=== PATIENT | female | born 1975 | race American Indian/Alaskan Native ===

== ENCOUNTER 2018-12-25 19:05 | Inpatient (IN) | payer SELFPAY ==
--- NOTE | 2018-12-25 19:37 | Event Note ---
Date: 12/25/18 Patient complains of central chest pain that radiates to both ribs, without vomiting, or shortness of breath, endorses resolved diaphoresis, after eating fast food. Reports stent placement at [facility] a few days ago, believes that her tool repairer is Dr. Ochoa. Initial EKG abnormal, with nonspecific anteroseptal ST abnormality, V1, V2, V3, without prior for comparison, or ST depression or reciprocal changes. The patient appears quite comfortable and is speaking in full sentences at this time. EKG transmitted to our package dyer on-call, Dr. Carrion, who agrees that the EKG currently does not meet emergent stucco laborer criteria activation. The patient will be protocoled according to our chest pain pathway.
--- NOTE | 2018-12-25 19:39 | Emergency Department Report ---
Chief Complaint: Chest Pain Stated Complaint: CHEST PAIN Time Seen by Provider: 12/25/18 19:34 - HPI History of Present Illness: This is a 43 y.o. female that presents with chest pain that is non-radiating for a few days. PMH HTN and DC. Patient states she ran out of blood pressure medication a few days ago. - Exam Vital Signs: Vital Signs 12/25/18 19:07 Temperature 97.8 F Pulse Rate 84 Respiratory 18 Rate Blood Pressure 188/124 Blood Pressure 188/124 [Left] O2 Sat by Pulse 98 Oximetry MSE screening note: Focused history and physical exam performed. Due to findings the following was ordered: Labs, EKG, & CXR Main ED for further evaluation. ED Disposition for MSE Condition: Stable
[2018-12-25 20:32] LABS: Basophils # (Auto) 0.1 K/mm3 (0.0-0.1); Eosinophils % (Auto) 0.2 % (0.0-4.3); Hematocrit 37.5 % (30.3-42.9); Hemoglobin 12.9 gm/dl (10.1-14.3); Lymphocytes # (Auto) 2.3 K/mm3 (1.2-5.4); Lymphocytes % (Auto) 30.2 % (13.4-35.0); Mean Corpuscular HGB Conc 34 % (30-34); Mean Corpuscular Volume 89 fl (79-97); Monocytes # (Auto) 1.1 K/mm3 (0.0-0.8); Monocytes % (Auto) 14.5 % (0.0-7.3); Platelet Count 278 K/mm3 (140-440); Red Blood Count 4.24 M/mm3 (3.65-5.03); Red Cell Distribution Width 13.6 % (13.2-15.2)
[2018-12-25 20:43] LABS: INR 0.87 (0.87-1.13)
[2018-12-25 20:44] LABS: Partial Thromboplastin Time 22.2 Sec. (24.2-36.6)
[2018-12-25 20:46] LABS: BUN/Creatinine Ratio 19; Blood Urea Nitrogen 19 mg/dL (7-17); Calcium 9.3 mg/dL (8.4-10.2); Hemolysis Index 6
--- NOTE | 2018-12-25 21:23 | Emergency Department Report ---
ED Chest Pain HPI - General Chief Complaint: Chest Pain Stated Complaint: CHEST PAIN Time Seen by Provider: 12/25/18 19:34 Source: patient, EMS Mode of arrival: Stretcher Limitations: No Limitations - History of Present Illness Initial Comments: 43-year-old female with history of CABG and stent placement presents to ED with onset of chest pain earlier this afternoon while eating at [employer]. The patient reports pain is sharp, substernal, left and right sided. States the right sided chest pain subsided, but the left-sided chest pain remained. States pain is similar to previous ME, but less intense. Patient denies tobacco, ETOH, drug use. States has BP medication, but has not taken in 3 days, unsure of the name of the medication. PCP: none MD Complaint: chest pain -: This afternoon Onset: during rest Pain Location: substernal, left chest, right chest Severity: moderate Severity scale (0 -10): 0 Quality: sharp Worsens With: nothing re: diaphoresis, dyspnea - Related Data Allergies Allergy/AdvReac Type Severity Reaction Status Date / Time No Known Allergies Allergy Unverified 12/25/18 19:35 Heart Score - HEART Score History: Slightly suspicious EKG: Non-specific Age: < 45 Risk factors: > 3 risk factors or hx of atherosclerotic disease Troponin: < normal limit HEART Score: 3 ED Review of Systems ROS: Stated complaint: CHEST PAIN Other details as noted in HPI Comment: All other systems reviewed and negative Constitutional: denies: fever Respiratory: shortness of breath Cardiovascular: chest pain Gastrointestinal: denies: nausea, vomiting Musculoskeletal: other (denies leg pain or swelling) ED Past Medical Hx - Past Medical History Previous Medical History?: Yes Hx Hypertension: Yes Hx Heart Attack/AMI: Yes (2017) - Surgical History Past Surgical History?: Yes Hx Coronary Stent: Yes - Social History Smoking Status: Current Every Day Smoker Substance Use Type: None ED Physical Exam - General Limitations: No Limitations General appearance: alert, in no apparent distress - Head Head exam: Present: atraumatic, normocephalic - Eye Eye exam: Present: normal appearance - ENT ENT exam: Present: mucous membranes moist - Neck Neck exam: Present: normal inspection - Respiratory Respiratory exam: Present: normal lung sounds bilaterally. Absent: respiratory distress - Cardiovascular Cardiovascular Exam: Present: regular rate, normal rhythm - GI/Abdominal GI/Abdominal exam: Present: soft. Absent: distended, tenderness - Extremities Exam Extremities exam: Present: normal inspection. Absent: pedal edema, calf tenderness - Neurological Exam Neurological exam: Present: alert, oriented X3 - Psychiatric Psychiatric exam: Present: normal affect, normal mood - Skin Skin exam: Present: warm, dry, intact, normal color ED Course Vital Signs 12/25/18 03 19:07 20:16 Temperature 97.8 F 98.6 F Pulse Rate 84 86 Respiratory 18 16 Rate Blood Pressure 188/124 Blood Pressure 188/124 158/112 [Left] O2 Sat by Pulse 98 100 Oximetry ED Medical Decision Making - Lab Data Result diagrams: 12/25/18 19:56 12/25/18 19:56 - EKG Data -: EKG Interpreted by Ca EKG shows normal: sinus rhythm, axis, intervals, QRS complexes Rate: normal - EKG Data Interpretation: LVH, other (T wave inversions I, aVL) - Radiology Data Radiology results: report reviewed, image reviewed - Medical Decision Making 43-year-old female with history of CAD status post stent placement a few years ago presents to ED with chest pain. EKG shows no acute ST elevations, troponin negative. CTA done due to elevated d-dimer. CTA chest negative. Drug screen positive for cocaine. Patient noncompliant with meds. Will admit to hospitalist, Dr. Mixon, for further workup. - Differential Diagnosis ACS, PE, pneumonia, GERD Critical care attestation.: If time is entered above; I have spent that time in minutes in the direct care of this critically ill patient, excluding procedure time. ED Disposition Clinical Impression: Chest pain, Cocaine abuse Disposition: OP ADMIT IP TO THIS HOSP Is pt being admited?: Yes Condition: Stable Instructions: Chest Pain (ED) Time of Disposition: 01:44
[2018-12-25 23:22] LABS: HCG Qualitative,Urine Negative (Negative)
[2018-12-25 23:23] LABS: Bacteria,Urine 1+ /HPF (Negative); Bilirubin,Urine NEG (Negative); Blood,Urine NEG (Negative); Color,Urine Yellow (Yellow); Mucus,Urine 1+ /HPF; Urobilinogen,Urine < 2.0 mg/dL (<2.0)
[2018-12-25 23:37] LABS: Amphetamine Screen,Urine PRESUMPTIVE NEGATIVE; Benzodiazepines Screen,Urine PRESUMPTIVE NEGATIVE; Cannabinoid Screen,Urine PRESUMPTIVE NEGATIVE; Methadone Screen,Urine PRESUMPTIVE NEGATIVE; Opiate Screen,Urine PRESUMPTIVE NEGATIVE
[2018-12-26 00:01] LABS: Cocaine Screen,Urine PRESUMPTIVE POSITIVE
--- NOTE | 2018-12-26 00:08 | XRay Report ---
PROCEDURE: XR CHEST ROUTINE 2V TECHNIQUE: PA and lateral chest radiographs were obtained. HISTORY: Chest Pain COMPARISONS: None. FINDINGS: Heart: Normal. Mediastinum/Vessels: Normal. Lungs/Pleural space: Normal. Bony thorax: No acute osseous abnormality. IMPRESSION: Normal examination. This document is electronically signed by Brandon Yap MD., December 26 2018 12:06:30 AM ET
[2018-12-26] MEDS ORDERED: ASPIRIN PO ONE (00:13)
--- NOTE | 2018-12-26 00:41 | Cat Scan Report ---
PROCEDURE: COMPUTED TOMOGRAPHY ANGIOGRAPHY, PULMONARY ARTERY. CLINICAL STATEMENT: Chest pain COMPARISON: None available. Radiographs December 25, 2018. TECHNIQUE: Medication reconciliation. Uneventful IV contrast administration of weight-dependent volume of iodine-based contrast medium. CTA chest to opacify pulmonary arteries. MPR. CAUTION: Study not optimized for aortic dissection evaluation. Overall image quality is satisfactory. COMMENTS: Pulmonary artery embolism: None. Pneumothorax, consolidation or pleural effusion: Mild upper lobe predominant Septal emphysematous changes. No lobar consolidation, pleural effusion or pneumothorax. Cardiomegaly or pericardial effusion: None. Upper abdomen: 4.2 x 4.3 x 4.8 cm right upper abdominal mass with (Hounsfield units 51)-axial image 1 08 which likely arises from the right adrenal gland. Prominent vessels are noted about the peripheral margin of the mass. Remaining limited evaluation of the upper abdominal viscera are unremarkable.121 Sternum, ribs and thoracic spine: Intact. Mild dextrocurvature of the thoracolumbar spine. IMPRESSION: 1. No acute or chronic pulmonary embolism detected. 2. Mild emphysematous changes. 3. 4.2 x 4.3 x 4.8 cm indeterminate probable right adrenal mass. RECOMMENDATION: Recommend dedicated adrenal protocol CT or MRI to further characterize. This document is electronically signed by Kris Joseph DO., December 26 2018 12:39:40 AM ET
[2018-12-26] MEDS ORDERED: ASPIRIN ONE (02:15)
[2018-12-26] MEDS ORDERED: SODIUM CHLORIDE FLUSH SYRINGE 10 ML IV PRN (03:05)
[2018-12-26] MEDS ORDERED: MORPHINE IV PRN (03:05)
[2018-12-26] MEDS ORDERED: APRESOLINE IV PRN ×2 (03:05→05:00)
[2018-12-26] MEDS ORDERED: NITROSTAT SL PRN (03:05)
--- NOTE | 2018-12-26 03:14 | History and Physical Report ---
<TERE ATKINS - Last Filed: 12/26/18 05:31> History of Present Illness Date of examination: 12/26/18 Date of admission: 12/26/2018 Chief complaint: Chest pain History of present illness: Patient is a 43-year-old female with PMHx of CAD/ IL with stent placement, malignant hypertension, bronchitis, chronic sinusitis who presents to [facility] ER with complaints of chest pain starting today. Patient states that she had been having chest pain on and off for at least a year which she had ignored, patient states that today the pain was very severe, it is a sharp pain , located and the left substernal area, pressing on her chest elicit the pain, she denies any shortness of breath, denies palpitation, denies diaphoresis, denies nausea, d enies vomiting. Patient denies any radiation of the pain, she states that the pain is unlike the chest pain that she had 2 years ago, which was a very squeezing pain that felt like "someone is taking her heart out", compared to this pain which is less intense but sharp. Patient admits to cigarette smoking one pack per day, drinks alcohol almost daily, and uses drugs. In the ER patient's blood pressure was very elevated 180/139, her EKG showed no STEMI criteria, fist cardiac enzymes was negative. Patient admits not to take any medications after her last IL or stent placement, she had not seen any doctor since nor had she had in the follow-up. Past History Past Medical History: acute IL, CAD, hypertension, hyperlipidemia Past Surgical History: No surgical history, Other (stent placement ) Social history: lives with family, smoking, alcohol abuse, other (Juan M used) Family history: hypertension (grandmother) Medications and Allergies Allergies Allergy/AdvReac Type Severity Reaction Status Date / Time No Known Allergies Allergy Verified 12/26/18 02:14 Active Meds: Active Medications Aspirin (Ecotrin) 325 mg PO QDAY TOD Atorvastatin Calcium (Lipitor) 20 mg PO QHS TOD Enoxaparin Sodium (Lovenox) 40 mg SUB-Q QDAY@1000 TDO Hydralazine HCl (Apresoline) 10 mg IV Q6HR PRN PRN Reason: FOR SBP > target Morphine Sulfate (Morphine) 2 mg IV Q4H PRN PRN Reason: Chest Pain unrelieved by NTG Nitroglycerin (Nitrostat) 0.4 mg SL Q5M PRN PRN Reason: Chest Pain Sodium Chloride (Sodium Chloride Flush Syringe 10 Ml) 10 ml IV PRN PRN PRN Reason: LINE FLUSH Review of Systems Ears, nose, mouth and throat: nasal congestion Cardiovascular: chest pain Exam - Constitutional Vitals: Temp Pulse Resp BP Pulse Ox 98.6 F 84 22 175/124 98 12/25/18 20:16 12/25/18 21:16 12/25/18 21:46 12/25/18 23:46 12/25/18 23:46 General appearance: Present: mild distress - EENT Eyes: Present: EOM intact ENT: hearing intact - Neck Neck: Present: normal ROM - Respiratory Respiratory effort: normal Respiratory: bilateral: CTA, diminished (at the bases) - Cardiovascular Rhythm: regular - Extremities Extremities: no ischemia Peripheral Pulses: within normal limits - Abdominal General gastrointestinal: Present: deferred - Rectal Rectal Exam: deferred - Integumentary Integumentary: Present: dry - Musculoskeletal Musculoskeletal: strength equal bilaterally - Psychiatric Psychiatric: appropriate mood/affect - Neurologic Neurologic: moves all extremities Results - Labs CBC & Chem 7: 12/25/18 19:56 12/25/18 19:56 Labs: Laboratory Last Values WBC 7.6 K/mm3 (4.5-11.0) 12/25/18 19:56 RBC 4.24 M/mm3 (3.65-5.03) 12/25/18 19:56 Hgb 12.9 gm/dl (10.1-14.3) 12/25/18 19:56 Hct 37.5 % (30.3-42.9) 12/25/18 19:56 MCV 89 fl (79-97) 12/25/18 19:56 MCH 30 pg (28-32) 12/25/18 19:56 MCHC 34 % (30-34) 12/25/18 19:56 RDW 13.6 % (13.2-15.2) 12/25/18 19:56 Plt Count 278 K/mm3 (140-440) 12/25/18 19:56 Lymph % (Auto) 30.2 % (13.4-35.0) 12/25/18 19:56 [place] % (Auto) 14.5 % (0.0-7.3) H 12/25/18 19:56 Eos % (Auto) 0.2 % (0.0-4.3) 12/25/18 19:56 Baso % (Auto) 1.0 % (0.0-1.8) 12/25/18 19:56 Lymph # 2.3 K/mm3 (1.2-5.4) 12/25/18 19:56 [place] # 1.1 K/mm3 (0.0-0.8) H 12/25/18 19:56 Eos # 0.0 K/mm3 (0.0-0.4) 12/25/18 19:56 Baso # 0.1 K/mm3 (0.0-0.1) 12/25/18 19:56 Seg Neutrophils % 54.1 % (40.0-70.0) 12/25/18 19:56 Seg Neutrophils # 4.1 K/mm3 (1.8-7.7) 12/25/18 19:56 PT 12.3 Sec. (12.2-14.9) 12/25/18 19:56 INR 0.87 (0.87-1.13) 12/25/18 19:56 APTT 22.2 Sec. (24.2-36.6) L 12/25/18 19:56 D-Dimer 282.3 ng/mlDDU (0-234) H 12/25/18 19:56 Sodium 139 mmol/L (137-145) 12/25/18 19:56 Potassium 3.8 mmol/L (3.6-5.0) 12/25/18 19:56 Chloride 97.7 mmol/L (98-107) L 12/25/18 19:56 Carbon Dioxide 30 mmol/L (22-30) 12/25/18 19:56 Anion Gap 15 mmol/L 12/25/18 19:56 BUN 19 mg/dL (7-17) H 12/25/18 19:56 Creatinine 1.0 mg/dL (0.7-1.2) 12/25/18 19:56 Estimated GFR > 60 ml/min 12/25/18 19:56 BUN/Creatinine Ratio 19 % 12/25/18 19:56 Glucose 116 mg/dL (65-100) H 12/25/18 19:56 Calcium 9.3 mg/dL (8.4-10.2) 12/25/18 19:56 Troponin T < 0.010 ng/mL (0.00-0.029) 12/26/18 01:39 Urine Color Yellow (Yellow) 12/25/18 23:08 Urine Turbidity Cloudy (Clear) 12/25/18 23:08 Urine pH 5.0 (5.0-7.0) 12/25/18 23:08 Ur Specific [place] 1.029 (1.003-1.030) 12/25/18 23:08 Urine Protein 30 mg/dl mg/dL (Negative) 12/25/18 23:08 Urine Glucose (UA) 150 mg/dL (Negative) 12/25/18 23:08 Urine Ketones Neg mg/dL (Negative) 12/25/18 23:08 Urine Blood Neg (Negative) 12/25/18 23:08 Urine Nitrite Neg (Negative) 12/25/18 23:08 Ur Reducing Substances Not Reportable 12/25/18 23:08 Urine Bilirubin Neg (Negative) 12/25/18 23:08 Urine Ictotest Not Reportable 12/25/18 23:08 Urine Urobilinogen < 2.0 mg/dL (<2.0) 12/25/18 23:08 Ur Leukocyte Esterase Neg (Negative) 12/25/18 23:08 Urine WBC (Auto) 4.0 /HPF (0.0-6.0) 12/25/18 23:08 Urine RBC (Auto) 7.0 /HPF (0.0-6.0) 12/25/18 23:08 U Epithel Cells (Auto) 35.0 /HPF (0-13.0) H 12/25/18 23:08 Urine Bacteria (Auto) 1+ /HPF (Negative) 12/25/18 23:08 Urine Mucus 1+ /HPF 12/25/18 23:08 Urine HCG, Qual Negative (Negative) 12/25/18 23:08 Urine Opiates Screen Presumptive negative 12/25/18 23:08 Urine Methadone Screen Presumptive negative 12/25/18 23:08 Ur Barbiturates Screen Presumptive negative 12/25/18 23:08 Ur Phencyclidine Scrn Presumptive negative 12/25/18 23:08 Ur Amphetamines Screen Presumptive negative 12/25/18 23:08 U Benzodiazepines Scrn Presumptive negative 12/25/18 23:08 Urine Cocaine Screen Presumptive positive 12/25/18 23:08 U Marijuana (THC) Screen Presumptive negative 12/25/18 23:08 Drugs of Abuse Note Disclamer 12/25/18 23:08 Assessment and Plan Assessment and plan: 1. Chest pain rule out cardiac ischemia versus drug-induced 2. CAD status post stent placement 3. Malignant hypertension (uncontrolled) 4. Hyperlipidemia 5. Cigarette smoking disorder 6. EtOH use disorder 7. Illicit drug use 8. Anxiety 9. Nonadherence to medical regimen Plan: Patient is admitted for chest pain Continue cardiac enzymes used 2 hours 2 more Cardiac monitoring Monitor vital signs/BP Hydralazine for SBP greater than 165 Counselled on medication compliance and BP control Alcohol regional protocol Possible stress test in a.m. Plan of care discussed with patient,forced understanding Patient's condition and plan of care discussed with Dr. Mixon Advance Directives: Yes (Harriett is orthostatic. 6 but that immunosuppression medication even though ) VTE prophylaxis?: Chemical Plan of care discussed with patient/family: Yes <AYDEN MIXON E - Last Filed: 12/26/18 06:21> History of Present Illness Date of admission: 12/26/18 02:12 Medications and Allergies Active Meds: Active Medications Aspirin (Ecotrin) 325 mg PO QDAY TOD Atorvastatin Calcium (Lipitor) 20 mg PO QHS TOD Diltiazem HCl (Cardizem Cd) 120 mg PO QDAY TOD Enoxaparin Sodium (Lovenox) 40 mg SUB-Q QDAY@1000 TOD Hydralazine HCl (Apresoline) 5 mg IV Q6HR PRN PRN Reason: FOR SBP > target Morphine Sulfate (Morphine) 2 mg IV Q4H PRN PRN Reason: Chest Pain unrelieved by NTG Nitroglycerin (Nitrostat) 0.4 mg SL Q5M PRN PRN Reason: Chest Pain Sodium Chloride (Sodium Chloride Flush Syringe 10 Ml) 10 ml IV PRN PRN PRN Reason: LINE FLUSH Exam - Constitutional Vitals: Temp Pulse Resp BP Pulse Ox 97.8 F 80 16 137/89 99 12/26/18 05:00 12/26/18 05:00 12/26/18 05:00 12/26/18 05:00 12/26/18 05:00 Results - Labs CBC & Chem 7: 12/26/18 04:43 12/26/18 04:43 Labs: Laboratory Last Values WBC 8.2 K/mm3 (4.5-11.0) 12/26/18 04:43 RBC 4.34 M/mm3 (3.65-5.03) 12/26/18 04:43 Hgb 13.0 gm/dl (10.1-14.3) 12/26/18 04:43 Hct 38.2 % (30.3-42.9) 12/26/18 04:43 MCV 88 fl (79-97) 12/26/18 04:43 MCH 30 pg (28-32) 12/26/18 04:43 MCHC 34 % (30-34) 12/26/18 04:43 RDW 13.2 % (13.2-15.2) 12/26/18 04:43 Plt Count 272 K/mm3 (140-440) 12/26/18 04:43 Lymph % (Auto) 43.3 % (13.4-35.0) H 12/26/18 04:43 [place] % (Auto) 10.2 % (0.0-7.3) H 12/26/18 04:43 Eos % (Auto) 0.5 % (0.0-4.3) 12/26/18 04:43 Baso % (Auto) 0.9 % (0.0-1.8) 12/26/18 04:43 Lymph # 3.5 K/mm3 (1.2-5.4) 12/26/18 04:43 [place] # 0.8 K/mm3 (0.0-0.8) 12/26/18 04:43 Eos # 0.0 K/mm3 (0.0-0.4) 12/26/18 04:43 Baso # 0.1 K/mm3 (0.0-0.1) 12/26/18 04:43 Seg Neutrophils % 45.1 % (40.0-70.0) 12/26/18 04:43 Seg Neutrophils # 3.7 K/mm3 (1.8-7.7) 12/26/18 04:43 PT 12.3 Sec. (12.2-14.9) 12/25/18 19:56 INR 0.87 (0.87-1.13) 12/25/18 19:56 APTT 22.2 Sec. (24.2-36.6) L 12/25/18 19:56 D-Dimer 282.3 ng/mlDDU (0-234) H 12/25/18 19:56 Sodium 137 mmol/L (137-145) 12/26/18 04:43 Potassium 3.3 mmol/L (3.6-5.0) L 12/26/18 04:43 Chloride 99.1 mmol/L (98-107) 12/26/18 04:43 Carbon Dioxide 25 mmol/L (22-30) 12/26/18 04:43 Anion Gap 16 mmol/L 12/26/18 04:43 BUN 13 mg/dL (7-17) 12/26/18 04:43 Creatinine 1.0 mg/dL (0.7-1.2) 12/26/18 04:43 Estimated GFR > 60 ml/min 12/26/18 04:43 BUN/Creatinine Ratio 13 % 12/26/18 04:43 Glucose 140 mg/dL (65-100) H 12/26/18 04:43 Calcium 9.0 mg/dL (8.4-10.2) 12/26/18 04:43 Troponin T < 0.010 ng/mL (0.00-0.029) 12/26/18 01:39 Triglycerides 98 mg/dL (2-149) 12/26/18 04:43 Cholesterol 236 mg/dL (50-199) H 12/26/18 04:43 LDL Cholesterol Direct 142 mg/dL (50-130) H 12/26/18 04:43 HDL Cholesterol 87 mg/dL (40-59) H 12/26/18 04:43 Cholesterol/HDL Ratio 2.71 % 12/26/18 04:43 Urine Color Yellow (Yellow) 12/25/18 23:08 Urine Turbidity Cloudy (Clear) 12/25/18 23:08 Urine pH 5.0 (5.0-7.0) 12/25/18 23:08 Ur Specific [place] 1.029 (1.003-1.030) 12/25/18 23:08 Urine Protein 30 mg/dl mg/dL (Negative) 12/25/18 23:08 Urine Glucose (UA) 150 mg/dL (Negative) 12/25/18 23:08 Urine Ketones Neg mg/dL (Negative) 12/25/18 23:08 Urine Blood Neg (Negative) 12/25/18 23:08 Urine Nitrite Neg (Negative) 12/25/18 23:08 Ur Reducing Substances Not Reportable 12/25/18 23:08 Urine Bilirubin Neg (Negative) 12/25/18 23:08 Urine Ictotest Not Reportable 12/25/18 23:08 Urine Urobilinogen < 2.0 mg/dL (<2.0) 12/25/18 23:08 Ur Leukocyte Esterase Neg (Negative) 12/25/18 23:08 Urine WBC (Auto) 4.0 /HPF (0.0-6.0) 12/25/18 23:08 Urine RBC (Auto) 7.0 /HPF (0.0-6.0) 12/25/18 23:08 U Epithel Cells (Auto) 35.0 /HPF (0-13.0) H 12/25/18 23:08 Urine Bacteria (Auto) 1+ /HPF (Negative) 12/25/18 23:08 Urine Mucus 1+ /HPF 12/25/18 23:08 Urine HCG, Qual Negative (Negative) 12/25/18 23:08 Urine Opiates Screen Presumptive negative 12/25/18 23:08 Urine Methadone Screen Presumptive negative 12/25/18 23:08 Ur Barbiturates Screen Presumptive negative 12/25/18 23:08 Ur Phencyclidine Scrn Presumptive negative 12/25/18 23:08 Ur Amphetamines Screen Presumptive negative 12/25/18 23:08 U Benzodiazepines Scrn Presumptive negative 12/25/18 23:08 Urine Cocaine Screen Presumptive positive 12/25/18 23:08 U Marijuana (THC) Screen Presumptive negative 12/25/18 23:08 Drugs of Abuse Note Disclamer 12/25/18 23:08 Assessment and Plan Assessment and plan: Patient seen and examined with nurse practitioner. Is a 43-year-old woman with history of hypertension, coronary artery disease, status post stent 2 years ago comes emergency room complaining of epigastric pain which she describes as sharp, lasting for a few seconds, radiating to the right rib, associated with shortness of breath, diaphoresis, no nausea vomiting. Physical exam is benign, agree with stress test. Start Cardizem, IV hydralazine for blood pressure control, start aspirin. Patient noncompliant with medications F/u med rec
[2018-12-26] MEDS ORDERED: APRESOLINE ONE (03:41)
--- NOTE | 2018-12-26 05:02 | Event Note ---
Patient seen and examined with nurse practitioner. Is a 43-year-old woman with history of hypertension, coronary artery disease, status post stent 2 years ago comes emergency room complaining of epigastric pain which she describes as sharp, lasting for a few seconds, radiating to the right rib, associated with shortness of breath, diaphoresis, no nausea vomiting. Physical exam is benign, agree with stress test. Start Cardizem, IV hydralazine for blood pressure control, start aspirin. Patient noncompliant with medications
[2018-12-26 05:46] LABS: Basophils # (Auto) 0.1 K/mm3 (0.0-0.1); Basophils % (Auto) 0.9 % (0.0-1.8); Eosinophils % (Auto) 0.5 % (0.0-4.3); Hematocrit 38.2 % (30.3-42.9); Lymphocytes # (Auto) 3.5 K/mm3 (1.2-5.4); Lymphocytes % (Auto) 43.3 % (13.4-35.0); Mean Corpuscular HGB Conc 34 % (30-34); Mean Corpuscular Volume 88 fl (79-97); Monocytes # (Auto) 0.8 K/mm3 (0.0-0.8); Monocytes % (Auto) 10.2 % (0.0-7.3); Platelet Count 272 K/mm3 (140-440); Red Blood Count 4.34 M/mm3 (3.65-5.03); Red Cell Distribution Width 13.2 % (13.2-15.2)
[2018-12-26 06:00] LABS: BUN/Creatinine Ratio 13; Blood Urea Nitrogen 13 mg/dL (7-17); Chol/HDL Ratio 2.71 %; HDL Cholesterol 87 mg/dL (40-59); Hemolysis Index 3; LDL Cholesterol,Direct 142 mg/dL (50-130)
[2018-12-26] MEDS ORDERED: LEXISCAN IV ONE (09:08)
[2018-12-26] MEDS ORDERED: LOVENOX SUB-Q SCH (10:00)
--- NOTE | 2018-12-26 10:45 | Progress Note ---
Assessment and Plan Assessment and plan: Chest pain. Patient for myocardial perfusion scan today. Await results. Coronary artery disease. Patient status post stent placement. Accelerated hypertension. Continue antihypertensive medications. Hyperlipidemia. Continue statins. Tobacco abuse. Patient will be counseled on tobacco cessation. EtOH abuse. Illicit drug use. UDS positive for cocaine. History Interval history: No new issues overnight. Hospitalist Physical - Constitutional Vitals: Temp Pulse Resp BP Pulse Ox 97.8 F 80 16 143/94 99 12/26/18 05:00 12/26/18 05:00 12/26/18 05:00 12/26/18 09:28 12/26/18 05:00 General appearance: Present: mild distress - EENT Eyes: Present: PERRL, EOM intact ENT: hearing intact, clear oral mucosa, dentition normal - Neck Neck: Present: supple, normal ROM - Respiratory Respiratory effort: normal Respiratory: bilateral: CTA - Cardiovascular Rhythm: regular Heart Sounds: Present: S1 & S2. Absent: gallop, rub - Extremities Extremities: no ischemia, No edema, Full ROM - Abdominal General gastrointestinal: soft, non-tender, non-distended, normal bowel sounds - Integumentary Integumentary: Present: clear, warm, dry - Neurologic Neurologic: CNII-XII intact, moves all extremities Results - Labs CBC & Chem 7: 12/26/18 04:43 12/26/18 04:43 Labs: Laboratory Last Values WBC 8.2 K/mm3 (4.5-11.0) 12/26/18 04:43 RBC 4.34 M/mm3 (3.65-5.03) 12/26/18 04:43 Hgb 13.0 gm/dl (10.1-14.3) 12/26/18 04:43 Hct 38.2 % (30.3-42.9) 12/26/18 04:43 MCV 88 fl (79-97) 12/26/18 04:43 MCH 30 pg (28-32) 12/26/18 04:43 MCHC 34 % (30-34) 12/26/18 04:43 RDW 13.2 % (13.2-15.2) 12/26/18 04:43 Plt Count 272 K/mm3 (140-440) 12/26/18 04:43 Lymph % (Auto) 43.3 % (13.4-35.0) H 12/26/18 04:43 Ceiba % (Auto) 10.2 % (0.0-7.3) H 12/26/18 04:43 Eos % (Auto) 0.5 % (0.0-4.3) 12/26/18 04:43 Baso % (Auto) 0.9 % (0.0-1.8) 12/26/18 04:43 Lymph # 3.5 K/mm3 (1.2-5.4) 12/26/18 04:43 [place] # 0.8 K/mm3 (0.0-0.8) 12/26/18 04:43 Eos # 0.0 K/mm3 (0.0-0.4) 12/26/18 04:43 Baso # 0.1 K/mm3 (0.0-0.1) 12/26/18 04:43 Seg Neutrophils % 45.1 % (40.0-70.0) 12/26/18 04:43 Seg Neutrophils # 3.7 K/mm3 (1.8-7.7) 12/26/18 04:43 PT 12.3 Sec. (12.2-14.9) 12/25/18 19:56 INR 0.87 (0.87-1.13) 12/25/18 19:56 APTT 22.2 Sec. (24.2-36.6) L 12/25/18 19:56 D-Dimer 282.3 ng/mlDDU (0-234) H 12/25/18 19:56 Sodium 137 mmol/L (137-145) 12/26/18 04:43 Potassium 3.3 mmol/L (3.6-5.0) L 12/26/18 04:43 Chloride 99.1 mmol/L (98-107) 12/26/18 04:43 Carbon Dioxide 25 mmol/L (22-30) 12/26/18 04:43 Anion Gap 16 mmol/L 12/26/18 04:43 BUN 13 mg/dL (7-17) 12/26/18 04:43 Creatinine 1.0 mg/dL (0.7-1.2) 12/26/18 04:43 Estimated GFR > 60 ml/min 12/26/18 04:43 BUN/Creatinine Ratio 13 % 12/26/18 04:43 Glucose 140 mg/dL (65-100) H 12/26/18 04:43 Calcium 9.0 mg/dL (8.4-10.2) 12/26/18 04:43 Troponin T < 0.010 ng/mL (0.00-0.029) 12/26/18 01:39 Triglycerides 98 mg/dL (2-149) 12/26/18 04:43 Cholesterol 236 mg/dL (50-199) H 12/26/18 04:43 LDL Cholesterol Direct 142 mg/dL (50-130) H 12/26/18 04:43 HDL Cholesterol 87 mg/dL (40-59) H 12/26/18 04:43 Cholesterol/HDL Ratio 2.71 % 12/26/18 04:43 Urine Color Yellow (Yellow) 12/25/18 23:08 Urine Turbidity Cloudy (Clear) 12/25/18 23:08 Urine pH 5.0 (5.0-7.0) 12/25/18 23:08 Ur Specific [place] 1.029 (1.003-1.030) 12/25/18 23:08 Urine Protein 30 mg/dl mg/dL (Negative) 12/25/18 23:08 Urine Glucose (UA) 150 mg/dL (Negative) 12/25/18 23:08 Urine Ketones Neg mg/dL (Negative) 12/25/18 23:08 Urine Blood Neg (Negative) 12/25/18 23:08 Urine Nitrite Neg (Negative) 12/25/18 23:08 Ur Reducing Substances Not Reportable 12/25/18 23:08 Urine Bilirubin Neg (Negative) 12/25/18 23:08 Urine Ictotest Not Reportable 12/25/18 23:08 Urine Urobilinogen < 2.0 mg/dL (<2.0) 12/25/18 23:08 Ur Leukocyte Esterase Neg (Negative) 12/25/18 23:08 Urine WBC (Auto) 4.0 /HPF (0.0-6.0) 12/25/18 23:08 Urine RBC (Auto) 7.0 /HPF (0.0-6.0) 12/25/18 23:08 U Epithel Cells (Auto) 35.0 /HPF (0-13.0) H 12/25/18 23:08 Urine Bacteria (Auto) 1+ /HPF (Negative) 12/25/18 23:08 Urine Mucus 1+ /HPF 12/25/18 23:08 Urine HCG, Qual Negative (Negative) 12/25/18 23:08 Urine Opiates Screen Presumptive negative 12/25/18 23:08 Urine Methadone Screen Presumptive negative 12/25/18 23:08 Ur Barbiturates Screen Presumptive negative 12/25/18 23:08 Ur Phencyclidine Scrn Presumptive negative 12/25/18 23:08 Ur Amphetamines Screen Presumptive negative 12/25/18 23:08 U Benzodiazepines Scrn Presumptive negative 12/25/18 23:08 Urine Cocaine Screen Presumptive positive 12/25/18 23:08 U Marijuana (THC) Screen Presumptive negative 12/25/18 23:08 Drugs of Abuse Note Disclamer 12/25/18 23:08 Active Medications - Current Medications Current Medications: Generic Name Dose Route Start Last Admin Trade Name Freq PRN Reason Stop Dose Admin Aspirin 325 mg 12/27/18 10:00 Ecotrin PO QDAY TOD Atorvastatin Calcium 20 mg 12/26/18 22:00 Lipitor PO QHS TOD Diltiazem HCl 120 mg 12/26/18 10:00 Cardizem Cd PO QDAY TOD Enoxaparin Sodium 40 mg 12/26/18 10:00 Lovenox SUB-Q QDAY@1000 [facility] Hydralazine HCl 5 mg 12/26/18 05:00 Apresoline IV Q6HR PRN FOR SBP > target Morphine Sulfate 2 mg 12/26/18 03:05 Morphine IV Q4H PRN Chest Pain unrelieved by NTG Nitroglycerin 0.4 mg 12/26/18 03:05 Nitrostat SL Q5M PRN Chest Pain Sodium Chloride 10 ml 12/26/18 03:05 Sodium Chloride Flush Syringe 10 Ml IV PRN PRN LINE FLUSH
[2018-12-26] MEDS: CARDIZEM CD PO SCH (11:13)
[2018-12-26] MEDS: LOVENOX SUB-Q SCH (11:14)
--- NOTE | 2018-12-26 11:21 | Consultation ---
History of Present Illness Consult date: 12/26/18 Consult reason: chest pain, hypertension (Hyperlipidemia) History of present illness: 43-year-old pleasant -[place] woman with a history of multiple medical problemshypertension, hyperlipidemia chronic bronchitis and chronic sinusitis was brought to the emergency room with the h/o severe substernal and left-sided chest pains today - lasted for several minutes not radiating not associated with any nausea, vomiting, palpitations and presyncope or syncope. She has a history of myocardial infarction and CAD and stent placement during March 2017 at [facility]. She had Increased Blood Pressure during Admission and subsequently after treatment, It came down. Serial Troponins were negative and SC has been ruled out. She has not Taken her usual medications for about 3 days. She gives History of chronic cigarette smoking. She has been smoking a pack of cigarettes for the past 27 years. She also consumes alcohol frequentlythree or four times a week.No h/o drug abuse. No history of any thyroid problems. No family history of premature coronary artery disease. Patient is mildly hypokalemic with potassium of 3.3. A CAT scan of the chest did not reveal any evidence of acute on chronic pulmonary embolism. Adrenal mass was seen. Past History Past Medical History: acute SC, CAD, hypertension, hyperlipidemia Past Surgical History: No surgical history, Other (stent placement ) Social history: lives with family, smoking, alcohol abuse, other (Juan M used) Family history: hypertension (grandmother) Medications and Allergies Allergies Allergy/AdvReac Type Severity Reaction Status Date / Time No Known Allergies Allergy Verified 12/26/18 02:14 Home Medications Medication Instructions Recorded Confirmed Last Taken Type No Known Home Medications [No 12/26/18 12/26/18 Unknown History Reported Home Medications] Active Meds: Active Medications Aspirin (Ecotrin) 325 mg PO QDAY TOD Atorvastatin Calcium (Lipitor) 20 mg PO QHS TOD Diltiazem HCl (Cardizem Cd) 120 mg PO QDAY TOD Enoxaparin Sodium (Lovenox) 40 mg SUB-Q QDAY@1000 [facility] Hydralazine HCl (Apresoline) 5 mg IV Q6HR PRN PRN Reason: FOR SBP > target Morphine Sulfate (Morphine) 2 mg IV Q4H PRN PRN Reason: Chest Pain unrelieved by NTG Nitroglycerin (Nitrostat) 0.4 mg SL Q5M PRN PRN Reason: Chest Pain Sodium Chloride (Sodium Chloride Flush Syringe 10 Ml) 10 ml IV PRN PRN PRN Reason: LINE FLUSH Review of Systems Ears, nose, mouth and throat: sinus pain, no ear discharge, no epistaxis, no bleeding gums Breasts: deferred Cardiovascular: chest pain, high blood pressure Respiratory: cough with sputum, no sleep apnea Gastrointestinal: no abdominal pain Genitourinary Female: no hematuria, no kidney stones Rectal: no pain Musculoskeletal: no myalgias Integumentary: no rash Neurological: no seizures Psychiatric: no memory loss Endocrine: no cold intolerance, no heat intolerance, no polyuria, no nocturia Hematologic/Lymphatic: no easy bruising Allergic/Immunologic: no urticaria Physical Examination Vital Signs Temp Pulse Resp BP Pulse Ox 97.8 F 84 18 188/124 98 12/25/18 19:07 12/25/18 19:07 12/25/18 19:07 12/25/18 19:07 12/25/18 19:07 General appearance: no acute distress HEENT: Positive: PERRL, Normocephaly, Mucus Membranes Moist Neck: Positive: neck supple, trachea midline Cardiac: Positive: Reg Rate and Rhythm, Other (Loud S2, S4+) Lungs: Positive: clear to auscultation, Normal Breath Sounds Neuro: Positive: Grossly Intact Abdomen: Positive: Soft, Active Bowel Sounds Female genitourinary: deferred Skin: Positive: Clear. Negative: Rash Musculoskeletal: No Fluid Collection, No Pain, Normal Range of Motion Extremities: Present: normal, upper extr. pulses, lower extr. pulses. Absent: edema Results 12/26/18 04:43 12/26/18 04:43 Coagulation 12/25/18 Range/Units 19:56 PT 12.3 (12.2-14.9) Sec. INR 0.87 (0.87-1.13) APTT 22.2 L (24.2-36.6) Sec. Lipids 12/26/18 Range/Units 04:43 Triglycerides 98 (2-149) mg/dL Cholesterol 236 H (50-199) mg/dL HDL Cholesterol 87 H (40-59) mg/dL Cholesterol/HDL Ratio 2.71 % CBC 12/25/18 12/26/18 Range/Units 19:56 04:43 WBC 7.6 8.2 (4.5-11.0) K/mm3 RBC 4.24 4.34 (3.65-5.03) M/mm3 Hgb 12.9 13.0 (10.1-14.3) gm/dl Hct 37.5 38.2 (30.3-42.9) % Plt Count 278 272 (140-440) K/mm3 Lymph # 2.3 3.5 (1.2-5.4) K/mm3 [place] # 1.1 H 0.8 (0.0-0.8) K/mm3 Eos # 0.0 0.0 (0.0-0.4) K/mm3 Baso # 0.1 0.1 (0.0-0.1) K/mm3 Comprehensive Metabolic Panel 12/25/18 12/26/18 Range/Units 19:56 04:43 Sodium 139 137 (137-145) mmol/L Potassium 3.8 3.3 L (3.6-5.0) mmol/L Chloride 97.7 L 99.1 (98-107) mmol/L Carbon Dioxide 30 25 (22-30) mmol/L BUN 19 H 13 (7-17) mg/dL Creatinine 1.0 1.0 (0.7-1.2) mg/dL Glucose 116 H 140 H (65-100) mg/dL Calcium 9.3 9.0 (8.4-10.2) mg/dL - EKG Interpretation EKG: sinus rhythm EKG shows: sinus rhythm EKG interpretations - Telemetry EKG Rhythm: Sinus Rhythm - EKG Sinus rhythms and dysrhythmias: sinus rhythm Myocardial infarction: septal SC (old age or ind Assessment and Plan Patient underwent Lexiscan stress test. She had mild lower retrosternal chest pains which persisted during the stress and recovery. No evidence of ischemia was seen in the EKG. we will follow myocardial perfusion scan. would also keep K level around 4. - Patient Problems (1) Old myocardial infarction Current Visit: Yes Status: Chronic (2) CAD (coronary artery disease) Current Visit: Yes Status: Chronic (3) Stented coronary artery Current Visit: Yes Status: Chronic (4) Hypertension Current Visit: Yes Status: Chronic (5) Hyperlipidemia Current Visit: Yes Status: Chronic (6) Cigarette smoker Current Visit: Yes Status: Chronic (7) Abnormal EKG Current Visit: Yes Status: Acute (8) Chest pain Current Visit: Yes Status: Acute
[2018-12-26] MEDS ORDERED: AFLURIA QUAD 2018-2019 SYRINGE IM ONE (12:00)
[2018-12-26] MEDS ORDERED: TORADOL IV ONE (12:43)
--- NOTE | 2018-12-26 13:15 | Treadmill Report ---
SINGLE ISOTOPE DUAL STUDY MYOCARDIAL PERFUSION SCAN REPORT REFERRING PHYSICIAN: Luis Gtz Seen and dictated by Bernadette Stinson MD DESCRIPTION OF PROCEDURE: The patient received 10 mCi of technetium 99m Myoview intravenously under resting conditions. Resting myocardial perfusion scan was done. Subsequently, the patient underwent Lexiscan stress test as per the protocol. During Lexiscan stress, the patient received 28 mCi of technetium 99m Myoview intravenously. After 30-60 minutes, post stress images were done. Computerized reconstruction images were performed for analysis. The post-stress images revealed uniform distribution of the radiopharmaceutical in the left ventricular myocardium. Cinematic display of the gated study did not reveal any wall motion abnormality. The left ventricular ejection fraction was low normal and was calculated to be 53%. The resting images were normal. CONCLUSIONS: 1. Normal resting and stress myocardial perfusion scan images after the patient underwent Lexiscan stress test. 2. No wall motion abnormality. 3. Low normal left ventricular ejection fraction of 53%. JOB# [id number] [facility]
[2018-12-26] MEDS ORDERED: K-DUR PO ONE (14:00)
[2018-12-27] MEDS: APRESOLINE IV PRN ×2 (00:38→10:11)
[2018-12-27 05:50] LABS: Alanine Aminotransferase 14 units/L (7-56); Albumin 3.9 g/dL (3.9-5); BUN/Creatinine Ratio 17; Blood Urea Nitrogen 17 mg/dL (7-17); Calcium 9.4 mg/dL (8.4-10.2); Hemolysis Index 8
--- NOTE | 2018-12-27 08:56 | Discharge Summary ---
Providers - Providers Date of Admission: 12/26/18 02:12 Date of discharge: 12/27/18 Attending physician: VIKTOR ST 12/25/18 19:34 Consult to Physician [CONS] Stat Comment: Consulting Provider: ARSEN MENDIETA Physician Instructions: Reason For Exam: cp abnormal ekg Primary care physician: ALLOCATIONS CLERK Hospitalization Reason for admission: cp Condition: Stable Hospital course: 43-year-old pleasant -[place] woman with a history of multiple medical problemshypertension, hyperlipidemia chronic bronchitis and chronic sinusitis was brought to the emergency room with the h/o severe substernal and left-sided chest pains on 12/26/18 that lasted for several minutes not radiating not associ ated with any nausea, vomiting, palpitations and presyncope or syncope. She has a history of myocardial infarction and CAD and stent placement during March 2017 at [facility]. She had Increased Blood Pressure during Admission and subsequently after treatment, the blood pressure resolved. Serial Troponins were negative and IA was ruled out. She had not taken her usual medications for about 3 days prior to admission. She gave History of chronic cigarette smoking. She has been smoking a pack of cigarettes for the past 27 years. She also consumes alcohol frequentlythree or four times a week. No h/o drug abuse per patient but urine drug screen positive for cocaine. No history of any thyroid problems. No family history of premature coronary artery disease. Patient was mildly hypokalemic with potassium of 3.3 on admission. A CAT scan of the chest did not reveal any evidence of acute on chronic pulmonary embolism. Adrenal mass was seen which can be followed up as an outpatient. The patient underwent Lexiscan stress test which showed no evidence of ischemia. Cardiology saw the patient in consultation and felt the patient could discharge home. Patient's pain was reproducible with palpation. Etiology is likely secondary to costochondritis. Dedicated discharge time 32 minutes. Disposition: -01 TO HOME OR SELFCARE Time spent for discharge: 32 - Discharge Diagnoses (1) Costochondritis Status: Acute (2) Chest pain Status: Acute (3) Cocaine abuse Status: Acute (4) CAD (coronary artery disease) Status: Chronic (5) Cigarette smoker Status: Chronic (6) Hyperlipidemia Status: Chronic (7) Hypertension Status: Chronic Core Measure Documentation - Palliative Care Palliative Care/ Comfort Measures: Not Applicable - Core Measures Any of the following diagnoses?: none Exam - Constitutional Vitals: Temp Pulse Resp BP Pulse Ox 98.1 F 88 16 141/92 98 12/27/18 04:22 12/27/18 04:22 12/27/18 04:22 12/27/18 04:22 12/27/18 04:22 General appearance: Present: no acute distress, well-nourished - EENT Eyes: Present: PERRL ENT: hearing intact, clear oral mucosa - Neck Neck: Present: supple, normal ROM - Respiratory Respiratory effort: normal Respiratory: bilateral: CTA - Cardiovascular Heart Sounds: Present: S1 & S2. Absent: rub, click - Extremities Extremities: pulses symmetrical, No edema Peripheral Pulses: within normal limits - Abdominal General gastrointestinal: Present: soft, non-tender, non-distended, normal bowel sounds Female genitourinary: Present: normal - Integumentary Integumentary: Present: clear, warm, dry - Musculoskeletal Musculoskeletal: gait normal, strength equal bilaterally - Psychiatric Psychiatric: appropriate mood/affect, intact judgment & insight - Neurologic Neurologic: CNII-XII intact, moves all extremities Plan Activity: no restrictions Weight Bearing Status: Full Weight Bearing Diet: low fat, low cholesterol, low salt Follow up with: BAHMAN YOUSIF MD [Referring] - 3-5 Days BRUCE CAMPO MD [Staff Physician] - 7 Days Prescriptions: dilTIAZem CD [Cardizem CD] 120 mg PO QDAY #30 capsule
[2018-12-27 09:00] VITALS: BP 150/103
[2018-12-27] MEDS ORDERED: ECOTRIN PO SCH (10:00)
[2018-12-27] MEDS: LOVENOX SUB-Q SCH (10:12)
[2018-12-27] MEDS: CARDIZEM CD PO SCH (10:12)
== END 2018-12-27 13:45 | disposition home or self-care (01) | DRG 206 ==
LOC: ED 19:05 → 4A 12-26 02:12
PROVIDERS: ADMIT Internal Medicine; ATTEND Hospitalist
DX: M94.0 Chondrocostal junction syndrome [Tietze] (principal); I10 Essential (primary) hypertension; J42 Unspecified chronic bronchitis; J32.8 Other chronic sinusitis; I25.10 Atherosclerotic heart disease of native coronary artery without angina pectoris; F17.200 Nicotine dependence, unspecified, uncomplicated; E87.6 Hypokalemia; F14.10 Cocaine abuse, uncomplicated; E78.5 Hyperlipidemia, unspecified; R94.31 Abnormal electrocardiogram [ECG] [EKG]; F10.10 Alcohol abuse, uncomplicated; F41.9 Anxiety disorder, unspecified; I25.2 Old myocardial infarction; Z95.5 Presence of coronary angioplasty implant and graft; Z82.49 Family history of ischemic heart disease and other diseases of the circulatory system; Z91.19 Patient's noncompliance with other medical treatment and regimen
CPT/HCPCS: 36415; 71046; 71275; 78452; 80048; 80053; 80061; 80307; 81001; 81025; 84484; 85025; 85379; 85610; 85730; 90686; 93005; 93010; 93017; 99406; G0378; A9502; J0360; J1650; J2785; Q9967

== ENCOUNTER 2019-04-07 11:28 | Emergency (ER) | payer OTHER ==
--- NOTE | 2019-04-07 11:44 | Event Note ---
ED Screening Note Date of service: 04/07/19 Time: 11:39 ED Screening Note: 43 y/o female comes in for chest pain. Elevated blood pressure in triage. This initial assessment/diagnostic orders/clinical plan/treatment(s) is/are subject to change based on patients health status, clinical progression and re- assessment by fellow clinical providers in the ED. Further treatment and workup at subsequent clinical providers discretion. Patient/guardian urged not to elope from the ED as their condition may be serious if not clinically assessed and managed. Initial orders include:
[2019-04-07] MEDS ORDERED: TORADOL IV ONE (12:15)
--- NOTE | 2019-04-07 12:16 | Emergency Department Report ---
ED Chest Pain HPI - General Chief Complaint: Chest Pain Stated Complaint: CHEST PAIN Time Seen by Provider: 04/07/19 12:04 Source: patient Mode of arrival: Ambulatory Limitations: No Limitations - History of Present Illness Initial Comments: Patient is a 43-year-old female who's complaining of chest pain. Patient states the pain is located in the center chest as well as her left side and mid back. Patient states as a sharp constant pain. Pain started yesterday. Pain is not worse with exertion but it is worse with deep breathing. Patient has a dried cough as well. Patient does have a history of hypertension and states she is compliant with medications. Patient denies any nausea vomiting fevers chills at this time. Patient does have shortness of breath. - Related Data Previous Rx's Medication Instructions Recorded Last Taken Type dilTIAZem CD [Cardizem CD] 120 mg PO QDAY #30 capsule 12/27/18 Unknown Rx amLODIPine [Norvasc] 5 mg PO DAILY #30 tab 02/16/19 Unknown Rx hydroCHLOROthiazide [HCTZ] 25 mg PO QDAY #30 tablet 02/16/19 Unknown Rx ALBUTEROL Inhaler (OR & NICU) 2 puff IH QID PRN #1 inhalation 04/07/19 Unknown Rx [ProAir HFA Inhaler] Benzonatate [Tessalon Perles] 100 mg PO Q8HR #10 capsule 04/07/19 Unknown Rx DOXYCYCLINE Hyclate [Vibramycin 100 mg PO Q12HR #14 capsule 04/07/19 Unknown Rx CAP] Ondansetron [Zofran Odt] 4 mg PO Q8HR #10 tab.rapdis 04/07/19 Unknown Rx traMADol [Ultram] 50 mg PO Q6HR PRN #12 tablet 04/07/19 Unknown Rx Allergies Allergy/AdvReac Type Severity Reaction Status Date / Time No Known Allergies Allergy Verified 12/26/18 02:14 Heart Score - HEART Score History: Slightly suspicious EKG: Non-specific Age: < 45 Risk factors: 1-2 risk factors Troponin: < normal limit HEART Score: 2 ED Review of Systems ROS: Stated complaint: CHEST PAIN Other details as noted in HPI Comment: All other systems reviewed and negative ED Past Medical Hx - Past Medical History Previous Medical History?: Yes Hx Hypertension: Yes Hx Heart Attack/AMI: Yes (2017 with 1 stent) - Surgical History Past Surgical History?: Yes Hx Coronary Stent: Yes (stents placed in 2017) - Social History Smoking Status: Current Every Day Smoker Substance Use Type: Alcohol, Marijuana - Medications Home Medications: Home Medications Medication Instructions Recorded Confirmed Last Taken Type dilTIAZem CD [Cardizem CD] 120 mg PO QDAY #30 capsule 12/27/18 Unknown Rx amLODIPine [Norvasc] 5 mg PO DAILY #30 tab 02/16/19 Unknown Rx hydroCHLOROthiazide [HCTZ] 25 mg PO QDAY #30 tablet 02/16/19 Unknown Rx ALBUTEROL Inhaler (OR & NICU) 2 puff IH QID PRN #1 inhalation 04/07/19 Unknown Rx [ProAir HFA Inhaler] Benzonatate [Tessalon Perles] 100 mg PO Q8HR #10 capsule 04/07/19 Unknown Rx DOXYCYCLINE Hyclate [Vibramycin 100 mg PO Q12HR #14 capsule 04/07/19 Unknown Rx CAP] Ondansetron [Zofran Odt] 4 mg PO Q8HR #10 tab.rapdis 04/07/19 Unknown Rx traMADol [Ultram] 50 mg PO Q6HR PRN #12 tablet 04/07/19 Unknown Rx ED Physical Exam - General Limitations: No Limitations General appearance: alert, in no apparent distress - Head Head exam: Present: atraumatic, normocephalic - Eye Eye exam: Present: normal appearance - ENT ENT exam: Present: mucous membranes moist - Neck Neck exam: Present: normal inspection - Respiratory Respiratory exam: Present: normal lung sounds bilaterally. Absent: respiratory distress, wheezes, rales, rhonchi, chest wall tenderness - Cardiovascular Cardiovascular Exam: Present: regular rate, normal rhythm, normal heart sounds. Absent: systolic murmur, diastolic murmur, rubs, gallop - GI/Abdominal GI/Abdominal exam: Present: soft, normal bowel sounds. Absent: distended, tenderness, guarding, rebound, rigid - Extremities Exam Extremities exam: Present: normal inspection - Back Exam Back exam: Present: normal inspection - Neurological Exam Neurological exam: Present: alert, oriented X3 - Psychiatric Psychiatric exam: Present: normal affect, normal mood - Skin Skin exam: Present: warm, dry, intact, normal color. Absent: rash ED Course Vital Signs 04/07/19 04/07/19 04/07/19 11:40 13:09 13:30 Temperature 97.9 F Pulse Rate 79 70 70 Respiratory 18 24 16 Rate Blood Pressure 174/150 182/121 O2 Sat by Pulse 100 99 100 Oximetry 04/07/19 04/07/19 14:00 14:30 Temperature Pulse Rate Respiratory 15 20 Rate Blood Pressure 177/114 177/114 O2 Sat by Pulse 99 97 Oximetry ED Medical Decision Making - Lab Data Result diagrams: 04/07/19 12:19 04/07/19 12:19 - Radiology Data [facility] [address] [place] [address] Cat Scan Report Signed Patient: LUÍS MOJICA MR#: [id number] : 1975 Acct:[id number] Age/Sex: 43 / F ADM Date: 04/07/19 Loc: ED Attending Dr: Ordering Physician: FIORELLA BENITES MD Date of Service: 04/07/19 Procedure(s): CT angio chest Accession Number(s): [id number] cc: FIORELLA BENITES MD PROCEDURE: CT ANGIO CHEST TECHNIQUE: CT angiography of the chest was performed. IV contrast was administered. Axial images and coronal and sagittal reformatted images were obtained. Rotational MIP reformatted images also obtained. HISTORY: pleur CP with elevated d-dimer COMPARISON: 12/26/2018 FINDINGS: There is no aortic dissection seen. There are no abnormal pulmonary arterial filling defects seen to indicate acute pulmonary emboli. There is no pleural effusion seen. There is no pneumothorax seen. There is a very small area of nonspecific focal pneumonitis in the right middle lobe. There is a 4.7 cm right adrenal gland mass which is unchanged. IMPRESSION: There is no aortic dissection or pulmonary embolism seen. New very small area of nonspecific focal pneumonitis in right middle lobe. Significance unknown. Nonspecific 4.7 cm right adrenal gland mass is unchanged. Consider MRI correlation if long-term stability cannot be established by comparison to older exams. This document is electronically signed by Megan Palumbo MD., April 07 2019 03:41:18 PM ET Transcribed By: ULI Dictated By: MEGAN PALUMBO MD Electronically Authenticated By: MEGAN PALUMBO MD Signed Date/Time: 04/07/19 1543 DD/ 1531 TD/TT: 04/07/19 1531 - Medical Decision Making 43-year-old [place] female presenting with some pleuritic chest discomfort. Patient has had symptoms for greater than 24 hours and had a negative troponin thus ruling out acute TX. Patient did have a elevated d-dimer and her well score of put her in the moderate range. Patient had a CTA of the chest which was negative for pulmonary embolus but did show a right middle lobe hazy infiltrate consistent with early pneumonia. Patient be started on Doxycycline for her pneumonia and she'll be discharged home with medications for symptomatic relief. Critical Care Time: Yes (30) Critical care attestation.: If time is entered above; I have spent that time in minutes in the direct care of this critically ill patient, excluding procedure time. ED Disposition Clinical Impression: Acute chest pain Pneumonia Qualifiers: Pneumonia type: due to unspecified organism Laterality: right Lung location: middle lobe of lung Qualified Code(s): J18.1 - Lobar pneumonia, unspecified organism Disposition: - TO HOME OR SELFCARE Is pt being admited?: No Does the pt Need Aspirin: No Condition: Stable Instructions: Chest Pain (ED), Bacterial Pneumonia (ED) Referrals: BAHMAN YOUSIF MD [Primary Care Provider] - 3-5 Days Time of Disposition: 16:23
[2019-04-07 12:37] LABS: Basophils # (Auto) 0.1 K/mm3 (0.0-0.1); Basophils % (Auto) 1.4 % (0.0-1.8); Eosinophils % (Auto) 0.3 % (0.0-4.3); Hematocrit 38.9 % (30.3-42.9); Hemoglobin 13.1 gm/dl (10.1-14.3); Lymphocytes # (Auto) 1.8 K/mm3 (1.2-5.4); Lymphocytes % (Auto) 28.2 % (13.4-35.0); Mean Corpuscular HGB Conc 34 % (30-34); Mean Corpuscular Volume 89 fl (79-97); Monocytes # (Auto) 0.6 K/mm3 (0.0-0.8); Monocytes % (Auto) 9.7 % (0.0-7.3); Platelet Count 371 K/mm3 (140-440); Red Blood Count 4.37 M/mm3 (3.65-5.03); Red Cell Distribution Width 14.3 % (13.2-15.2)
[2019-04-07 12:50] LABS: INR 0.89 (0.87-1.13)
[2019-04-07 12:51] LABS: Partial Thromboplastin Time 25.6 Sec. (24.2-36.6)
[2019-04-07 13:11] LABS: Alanine Aminotransferase 17 units/L (7-56); Albumin 4.1 g/dL (3.9-5); BUN/Creatinine Ratio 16; Blood Urea Nitrogen 16 mg/dL (7-17); Calcium 9.5 mg/dL (8.4-10.2); Hemolysis Index 17
--- NOTE | 2019-04-07 13:11 | XRay Report ---
PROCEDURE: XR CHEST ROUTINE 2V TECHNIQUE: Chest, PA and lateral HISTORY: Chest Pain COMPARISON: 02/16/2019 FINDINGS: The heart size is normal. There is no pulmonary vascular congestion seen. Mediastinal contours are normal. Lungs are clear. There is no pleural effusion seen. There is no pneumothorax seen. IMPRESSION: No acute abnormality identified. This document is electronically signed by Megan Palumbo MD., April 07 2019 01:09:53 PM ET
[2019-04-07 15:36] LABS: Bilirubin,Urine NEG (Negative); Blood,Urine SM (Negative); Color,Urine Yellow (Yellow); Mucus,Urine 3+ /HPF; Urobilinogen,Urine < 2.0 mg/dL (<2.0)
[2019-04-07 15:40] LABS: Amphetamine Screen,Urine PRESUMPTIVE NEGATIVE; Benzodiazepines Screen,Urine PRESUMPTIVE NEGATIVE; Methadone Screen,Urine PRESUMPTIVE NEGATIVE; Opiate Screen,Urine PRESUMPTIVE NEGATIVE
--- NOTE | 2019-04-07 15:43 | Cat Scan Report ---
PROCEDURE: CT ANGIO CHEST TECHNIQUE: CT angiography of the chest was performed. IV contrast was administered. Axial images and coronal and sagittal reformatted images were obtained. Rotational MIP reformatted images also obtaine d. HISTORY: pleur CP with elevated d-dimer COMPARISON: 12/26/2018 FINDINGS: There is no aortic dissection seen. There are no abnormal pulmonary arterial filling defects seen to indicate acute pulmonary emboli. There is no pleural effusion seen. There is no pneumothorax seen. There is a very small area of nonspecific focal pneumonitis in the right middle lobe. There is a 4.7 cm right adrenal gland mass which is unchanged. IMPRESSION: There is no aortic dissection or pulmonary embolism seen. New very small area of nonspecific focal pneumonitis in right middle lobe. Significance unknown. Nonspecific 4.7 cm right adrenal gland mass is unchanged. Consider MRI correlation if long-term stabi lity cannot be established by comparison to older exams. This document is electronically signed by Megan Palumbo MD., April 07 2019 03:41:18 PM ET
[2019-04-07 15:58] LABS: Cannabinoid Screen,Urine PRESUMPTIVE POSITIVE; Cocaine Screen,Urine PRESUMPTIVE POSITIVE
[2019-04-07 16:44] VITALS: BP 179/99
== END 2019-04-07 16:35 | disposition home or self-care (01) ==
LOC: ED 11:28
DX: J18.1 Lobar pneumonia, unspecified organism (principal); R07.2 Precordial pain; I10 Essential (primary) hypertension; F12.10 Cannabis abuse, uncomplicated; Z95.1 Presence of aortocoronary bypass graft
CPT/HCPCS: 36415; 71046; 71275; 80053; 80307; 81001; 84484; 85025; 85379; 85610; 85730; 93005; 93010; 96374; 99285; J1885; Q9967

== ENCOUNTER 2019-06-03 16:27 | Emergency (ER) | payer SELFPAY ==
[2019-06-03 17:13] LABS: Basophils # (Auto) 0.1 K/mm3 (0.0-0.1); Eosinophils % (Auto) 0.5 % (0.0-4.3); Hematocrit 36.7 % (30.3-42.9); Hemoglobin 12.2 gm/dl (10.1-14.3); Lymphocytes # (Auto) 2.2 K/mm3 (1.2-5.4); Lymphocytes % (Auto) 23.1 % (13.4-35.0); Mean Corpuscular HGB Conc 33 % (30-34); Mean Corpuscular Volume 89 fl (79-97); Monocytes # (Auto) 0.5 K/mm3 (0.0-0.8); Monocytes % (Auto) 4.9 % (0.0-7.3); Platelet Count 269 K/mm3 (140-440); Red Blood Count 4.15 M/mm3 (3.65-5.03)
--- NOTE | 2019-06-03 17:22 | XRay Report ---
CHEST 1 VIEW INDICATION: Chest Pain. COMPARISON: 04/07/2019. FINDINGS: Support devices: None. Heart: Normal. Lungs/Pleura: No acute pulmonary or pleural findings. IMPRESSION: 1. No acute findings. Signer Name: Mark Sung MD Signed: 06/03/2019 5:18 PM Workstation Name: [id number]
[2019-06-03 17:33] LABS: BUN/Creatinine Ratio 13; Blood Urea Nitrogen 19 mg/dL (7-17); Calcium 9.5 mg/dL (8.4-10.2); Hemolysis Index 62
[2019-06-03] MEDS ORDERED: PROVENTIL IH ONE (18:14)
[2019-06-03] MEDS ORDERED: CATAPRES PO ONE (18:14)
[2019-06-03] MEDS ORDERED: NITROSTAT SL ONE (19:51)
[2019-06-03] MEDS ORDERED: MORPHINE IV ONE ×2 (19:51→20:14)
[2019-06-03 20:32] VITALS: BP 146/99
[2019-06-03] MEDS ORDERED: MORPHINE IM ONE (20:50)
--- NOTE | 2019-06-03 20:55 | Emergency Department Report ---
ED Chest Pain HPI - General Chief Complaint: Chest Pain Stated Complaint: CHEST PAIN Time Seen by Provider: 06/03/19 17:13 Source: patient, EMS Mode of arrival: Stretcher Limitations: No Limitations - History of Present Illness Initial Comments: patient presents to er with mid chest pain, wheezing after smoking. She states:"i want to know if i have the copd". She denies any n/v, fever, chills or night sweats. She denies any alleviating or exacerbating factors. MD Complaint: chest pain -: Gradual Severity scale (0 -10): 7 - Related Data Previous Rx's Medication Instructions Recorded Last Taken Type dilTIAZem CD [Cardizem CD] 120 mg PO QDAY #30 capsule 12/27/18 Unknown Rx Benzonatate [Tessalon Perles] 100 mg PO Q8HR #10 capsule 04/07/19 Unknown Rx DOXYCYCLINE Hyclate [Vibramycin 100 mg PO Q12HR #14 capsule 04/07/19 Unknown Rx CAP] Ondansetron [Zofran Odt] 4 mg PO Q8HR #10 tab.rapdis 04/07/19 Unknown Rx traMADol [Ultram] 50 mg PO Q6HR PRN #12 tablet 04/07/19 Unknown Rx ALBUTEROL Inhaler (OR & NICU) 2 puff IH QID PRN #1 inhalation 06/03/19 Unknown Rx [ProAir HFA Inhaler] Prednisone [predniSONE 5 mg (6-Day 5 mg PO .TAPER #1 tab.ds.pk 06/03/19 Unknown Rx Pack, 21 Tabs)] amLODIPine [Norvasc] 5 mg PO DAILY #30 tab 06/03/19 Unknown Rx hydroCHLOROthiazide [HCTZ] 25 mg PO QDAY #30 tablet 06/03/19 Unknown Rx Allergies Allergy/AdvReac Type Severity Reaction Status Date / Time No Known Allergies Allergy Verified 12/26/18 02:14 Heart Score - HEART Score History: Slightly suspicious EKG: Non-specific Age: < 45 Risk factors: 1-2 risk factors Troponin: < normal limit HEART Score: 2 ED Review of Systems ROS: Stated complaint: CHEST PAIN Other details as noted in HPI Comment: All other systems reviewed and negative Respiratory: cough, wheezing Cardiovascular: chest pain ED Past Medical Hx - Past Medical History Previous Medical History?: Yes Hx Hypertension: Yes Hx Heart Attack/AMI: Yes (2017 with 1 stent) - Surgical History Past Surgical History?: Yes Hx Coronary Stent: Yes (stents placed in 2017) Additional Surgical History: tonsilectomy - Social History Smoking Status: Heavy Tobacco Smoker Substance Use Type: Alcohol, Marijuana - Medications Home Medications: Home Medications Medication Instructions Recorded Confirmed Last Taken Type dilTIAZem CD [Cardizem CD] 120 mg PO QDAY #30 capsule 12/27/18 Unknown Rx Benzonatate [Tessalon Perles] 100 mg PO Q8HR #10 capsule 04/07/19 Unknown Rx DOXYCYCLINE Hyclate [Vibramycin 100 mg PO Q12HR #14 capsule 04/07/19 Unknown Rx CAP] Ondansetron [Zofran Odt] 4 mg PO Q8HR #10 tab.rapdis 04/07/19 Unknown Rx traMADol [Ultram] 50 mg PO Q6HR PRN #12 tablet 04/07/19 Unknown Rx ALBUTEROL Inhaler (OR & NICU) 2 puff IH QID PRN #1 inhalation 06/03/19 Unknown Rx [ProAir HFA Inhaler] Prednisone [predniSONE 5 mg (6-Day 5 mg PO .TAPER #1 tab.ds.pk 06/03/19 Unknown Rx Pack, 21 Tabs)] amLODIPine [Norvasc] 5 mg PO DAILY #30 tab 06/03/19 Unknown Rx hydroCHLOROthiazide [HCTZ] 25 mg PO QDAY #30 tablet 06/03/19 Unknown Rx ED Physical Exam - General Limitations: No Limitations General appearance: alert, in no apparent distress - Head Head exam: Present: atraumatic, normocephalic - Eye Eye exam: Present: normal appearance, PERRL - ENT ENT exam: Present: normal exam, normal orophraynx - Respiratory Respiratory exam: Present: wheezes - Cardiovascular Cardiovascular Exam: Present: regular rate, normal rhythm - GI/Abdominal GI/Abdominal exam: Present: soft, normal bowel sounds ED Course Vital Signs 06/03/19 06/03/19 06/03/19 16:33 16:41 16:56 Temperature Pulse Rate 75 Pulse Rate [ Posterior Bilateral Throughout] Respiratory 18 18 Rate Respiratory Rate [Posterior Bilateral Throughout] Blood Pressure 146/89 146/69 Blood Pressure [Left] O2 Sat by Pulse 98 99 99 Oximetry 06/03/19 06/03/19 06/03/19 17:01 17:30 18:00 Temperature 98.2 F Pulse Rate 79 75 Pulse Rate [ Posterior Bilateral Throughout] Respiratory 24 25 H Rate Respiratory Rate [Posterior Bilateral Throughout] Blood Pressure 166/110 177/120 Blood Pressure [Left] O2 Sat by Pulse 99 98 99 Oximetry 06/03/19 06/03/19 06/03/19 18:48 19:18 19:30 Temperature 98.2 F Pulse Rate 75 69 Pulse Rate [ 723 H Posterior Bilateral Throughout] Respiratory 19 Rate Respiratory 18 Rate [Posterior Bilateral Throughout] Blood Pressure 164/109 Blood Pressure 185/97 [Left] O2 Sat by Pulse 99 Oximetry 06/03/19 06/03/19 06/03/19 20:30 20:31 20:35 Temperature Pulse Rate 69 69 Pulse Rate [ Posterior Bilateral Throughout] Respiratory 21 16 Rate Respiratory Rate [Posterior Bilateral Throughout] Blood Pressure 146/99 Blood Pressure 146/99 [Left] O2 Sat by Pulse 100 Oximetry 06/03/19 21:05 Temperature Pulse Rate Pulse Rate [ Posterior Bilateral Throughout] Respiratory 18 Rate Respiratory Rate [Posterior Bilateral Throughout] Blood Pressure Blood Pressure [Left] O2 Sat by Pulse Oximetry ED Medical Decision Making - Lab Data Result diagrams: 06/03/19 16:59 06/03/19 16:59 - EKG Data -: EKG Interpreted by Dc EKG shows normal: sinus rhythm - EKG Data Interpretation: nonspecific ST-T wave manoj - Radiology Data Radiology results: report reviewed - Medical Decision Making pain free, wants to go home. trop negative, will d/c. - Differential Diagnosis acs, copd exacerbation Critical care attestation.: If time is entered above; I have spent that time in minutes in the direct care of this critically ill patient, excluding procedure time. ED Disposition Clinical Impression: COPD exacerbation Hypertension Qualifiers: Hypertension type: essential hypertension Qualified Code(s): I10 - Essential (primary) hypertension Chest pain Qualifiers: Chest pain type: unspecified Qualified Code(s): R07.9 - Chest pain, unspecified Disposition: -01 TO HOME OR SELFCARE Is pt being admited?: No Does the pt Need Aspirin: No Condition: Stable Instructions: Chest Pain (ED), Chronic Obstructive Pulmonary Disease (ED), Hypertension (ED) Prescriptions: hydroCHLOROthiazide [HCTZ] 25 mg PO QDAY #30 tablet amLODIPine [Norvasc] 5 mg PO DAILY #30 tab Prednisone [predniSONE 5 mg (6-Day Pack, 21 Tabs)] 5 mg PO .TAPER #1 tab.ds.pk ALBUTEROL Inhaler (OR & NICU) [ProAir HFA Inhaler] 2 puff IH QID PRN #1 inhalation PRN Reason: Shortness Of Breath Referrals: AMANDA SMITH MD [Staff Physician] - 3-5 Days PRIMARY CARE, [Primary Care Provider] - 3-5 Days
== END 2019-06-03 21:10 | disposition home or self-care (01) ==
LOC: ED 16:27
DX: I10 Essential (primary) hypertension (principal); R06.02 Shortness of breath; F17.200 Nicotine dependence, unspecified, uncomplicated; F12.10 Cannabis abuse, uncomplicated; Z79.899 Other long term (current) drug therapy; Z95.1 Presence of aortocoronary bypass graft; Z90.89 Acquired absence of other organs
CPT/HCPCS: 36415; 71045; 80048; 84484; 85025; 93005; 93010; 94640; 96372; 99285; J2270; 94644

== ENCOUNTER 2020-01-05 02:57 | Emergency (ER) | payer SELFPAY ==
[2020-01-05 06:44] VITALS: BP 125/92
--- NOTE | 2020-01-05 07:42 | Emergency Department Report ---
Chief Complaint: High BP Stated Complaint: HBP - HPI History of Present Illness: 44-year-old -[place] female presents to the emergency room for complaint of high blood pressure. Patient was sleep at [place] and [place] when PD woke patient up and EMS was called. Patient stated that she needed to come to [facility] not the nearest emergency room. Patient's blood pressure on the time of arrival was 162/111 heart rate was 90 respirations 16 and patient was satting at 98% on room air. When this provider evaluated patient blood pressure is 123/92. - Exam Vital Signs: Vital Signs 01/05/20 01/05/20 01/05/20 03:08 06:33 06:43 Temperature 97.9 F Pulse Rate 90 71 81 Respiratory 16 18 Rate Blood Pressure 152/114 Blood Pressure 162/111 125/92 [Left] O2 Sat by Pulse 98 96 97 Oximetry Physical Exam: Gen: alert oriented NAD Cardic: regular rate and rhythm no murmurs appreciated Resp: Clear to auscultation bilateral no wheezing no rales or rhonchi. Chest wall tenderness. Abdomen: Soft nontender nondistended normal bowel sounds. MSE screening note: Focused history and physical exam performed. Due to findings the following was ordered: 44-year-old -[place] female presents to the emergency room for complaint of high blood pressure. Patient was sleep at [place] and [place] when PD woke patient up and EMS was called. Patient stated that she needed to come to [facility] not the nearest emergency room. Patient's blood pressure on the time of arrival was 162/111 heart rate was 90 respirations 16 and patient was satting at 98% on room air. When this provider evaluated patient blood pressure is 123/92. Patient was given no medication to bring her blood pressure down as it came down on its own. Patient elicited to me that she stays in a hotel. Patient denies taking any drugs. Patient was sleeping very comfortably in exam room upon my arrival patient was difficult to wake up but she was alert and oriented after I woke her up. Patient was in no acute distress sleeping very hard. Patient will be referred to her primary care provider for further evaluation for any concerns. ED Disposition for MSE Clinical Impression: Hypertension, Costochondritis Disposition: MED SCREENING EXAM-LEFT Is pt being admited?: No Does the pt Need Aspirin: No Condition: Stable Instructions: Hypertension (ED), Costochondritis (ED) Referrals: PRIMARY CARE, [Primary Care Provider] - 3-5 Days
== END 2020-01-05 08:04 | disposition left against medical advice (07) ==
LOC: ED 02:57
DX: I10 Essential (primary) hypertension (principal); M94.0 Chondrocostal junction syndrome [Tietze]
CPT/HCPCS: 99282